=== PATIENT | male | born 1945 | race Caucasian/White ===

== ENCOUNTER 2023-04-05 13:45 | Outpatient (RCR) | payer OTHER, SELFPAY ==
--- NOTE | 2023-04-05 10:21 | ONC.NURNOTE ---
Dose change for Tagrisso faxed to [facility] 40mg daily disp #30 new PA required completed per covermymeds
[2023-04-05 14:12] LABS: Hematocrit 41.6 % (37.0-53.0); Hemoglobin* 13.9 gm/dL (13.5-17.5); Mean Corpuscular HGB Conc 33 gm/dL (32-36); Mean Corpuscular Hemoglobin 31 pg (26-34); Mean Corpuscular Volume 94 fL (80-100); Platelet Count* 139 K/uL (140-440); Red Blood Count 4.45 m/uL (4.30-5.90); White Blood Count* 5.02 K/uL (4.50-11.00)
[2023-04-05 14:13] LABS: Basophils Percent Auto 0.2 % (0.0-3.0); Eosinophils Percent Auto 1.6 % (0.0-7.0); Immature Granulocytes Pct Auto 1.2 %; Lymphocytes Percent Auto 17.3 % (20-44); Monocytes Percent Auto 9.6 % (0.0-11.0); Neutrophils Percent Auto 70.1 % (42.0-72.0); RDW Coefficient of Variation % 13.5 % (11.5-15.5); Slide Review Reflex No
[2023-04-05 14:30] LABS: Sodium* 138 mmol/L (135-149)
[2023-04-05 14:31] LABS: Alanine Aminotransferase* 20 U/L (4-50); Albumin* 4.2 g/dL (3.3-5.0); Anion Gap 7 mEq/L (7-15); Aspartate Amino Transferase* 33 U/L (12-35); Bilirubin Direct* 0.1 mg/dL (0.0-0.5); Bilirubin Total* 0.9 mg/dL (0.1-1.5); Blood Urea Nitrogen* 16 mg/dL (7-30); Calcium* 9.7 mg/dL (8.4-10.6); Carbon Dioxide* 26 mmol/L (20-32); Chloride* 105 mmol/L (96-114); Creatinine* 0.8 mg/dL (0.5-1.5); Estimated Glomerular Filt Rate 92 ml/min; Glucose* 87 mg/dL (60-115); Potassium* 3.8 mmol/L (3.6-5.1); Total Protein* 6.9 g/dL (6.0-8.3)
[2023-04-05 14:32] LABS: Alkaline Phosphatase* 116 U/L (40-150)
== END 2023-10-02 23:59 | disposition home or self-care (01) ==
LOC: CCIC 13:45
PROVIDERS: Visit Provider Clinical Nurse Specialist
DX: C19 Malignant neoplasm of rectosigmoid junction (principal)
CPT/HCPCS: 36415; 80053; 82248; 85025